=== PATIENT | female | born 1970 | race Hispanic/Latino ===

== ENCOUNTER 2022-01-19 16:08 | Emergency (ER) | payer OTHER, MEDICAID, SELFPAY ==
[2022-01-19 16:55] VITALS: BP 144/75; PULSE 105; RESP 16; TEMP 36.3; O2SAT 98; BMI 33.6
--- NOTE | 2022-01-19 16:59 | DI.RAD.S_ITS ---
PROCEDURE: XR LUMBAR SPINE 2-3V INDICATIONS: direct blow TECHNIQUE: 3 views of the lumbar spine were acquired. COMPARISON: None. FINDINGS: Bones: 5 [id number] vertebrae are present. There is trace dextroconvex curvature. No vertebral body compression fractures. No suspicious bony lesions. Mild disc space narrowing and degenerative endplate changes are seen that are most prominent at the L5-S1 level. There is minimal facet hypertrophy. Soft tissues: Overlying bowel gas pattern is normal. No suspicious soft tissue calcifications. IMPRESSION: No acute osseous abnormality. If the symptoms persist, consider cross sectional imaging such as MRI or CT for further assessment. Approved by: Jean Thakur M.D. on 01/19/2022 at 17:17
[2022-01-19] MEDS: KETOROLAC 30 MG/ML VIAL 15 MG IM (19:19)
[2022-01-19] MEDS: methocarbamoL 500 MG TABLET PO (19:19)
[2022-01-19] MEDS: predniSONE 20 MG TABLET 40 MG PO (19:19)
[2022-01-19] MEDS: PANTOPRAZOLE DR 20 MG TABLET PO (19:19)
[2022-01-19 19:22] VITALS: BP 139/90; PULSE 106; RESP 16; O2SAT 96
--- NOTE | 2022-01-19 19:23 | ED.BACK ---
HPI - Back Pain/Injury <CINDY Garcia - Last Filed: 01/19/22 20:14> General Chief Complaint: Back Pain/Injury Stated Complaint: Fell down stairs, Low back pain Time Seen by Provider: 01/19/22 18:56 History of Present Illness HPI Narrative: This is a 51-year-old female presents to the emergency department after a fall 6 days ago down the stairs landing on her buttocks. She states that she has had back spasms at nighttime, endorses low back pain which is exacerbated by bending over, leg lift, twisting or certain positions. She states that she just moved here, has not been able to set up a primary care provider yet because she just finished her Medicare/Medicaid paperwork and states that it needs 2 weeks of processing time before he can make an appointment. She states that she takes levothyroxine, estradiol and rosuvastatin daily and she is almost out of these medications. She states that she is been taking Tylenol for her pain but it has not been adequate and it is keeping her up at night. Related Data Previous Rx's Medication Instructions Recorded estradiol 1 mg tablet 1 mg PO DAILY #30 tabs 01/19/22 ketorolac 10 mg tablet 10 mg PO TID PRN pain 5 days #14 01/19/22 tabs levothyroxine 112 mcg capsule 112 mcg PO DAILY #30 caps 01/19/22 methocarbamol 500 mg tablet 500 mg PO TID PRN muscle #20 tabs 01/19/22 prednisone 20 mg tablet 40 mg PO DAILY 5 days #10 tabs 01/19/22 rosuvastatin 10 mg tablet 10 mg PO DAILY #30 tabs 01/19/22 Review of Systems <CINDY Garcia - Last Filed: 01/19/22 20:14> Review of Systems Narrative: Review of systems is negative for acute abnormalities unless otherwise noted in HPI Patient History <CINDY Garcia - Last Filed: 01/19/22 20:14> Social History Smoking Status: Never smoker Smoking Status: Never smoker Substance Use Type: does not use Exam <CINDY Garcia - Last Filed: 01/19/22 20:14> Narrative Exam Narrative: Reviewed vitals signs and nursing notes. General: cooperative, comfortable, in no acute distress, well groomed HEENT: symmetrical facial expressions, moist mucous membranes MSK: moves all extremities, neurovascularly intact, no weakness, normal tone, tenderness to her L5-S1 over her sacrum, pain is exacerbated by forward flexion and leg lift. She has a lidocaine patch present, no surrounding erythema, no tenderness to palpation rectal tone is present Skin: brisk capillary refill, without pallor or erythema Neuro: normal speech and cognition, A&O x3, ambulatory, clear speech Psych: mental status is grossly normal, congruent mood, normal affect, pleasant and cooperative Initial Vital Signs Initial Vital Signs: Vital Signs Temperature 97.3 F L 01/19/22 16:55 Pulse Rate 105 H 01/19/22 16:55 Respiratory Rate 16 01/19/22 16:55 Blood Pressure 144/75 H 01/19/22 16:55 Pulse Oximetry 98 01/19/22 16:55 Oxygen Delivery Method 01/19/22 16:55 <Xin Arango DO - Last Filed: 01/23/22 08:34> Initial Vital Signs Initial Vital Signs: Vital Signs Temperature 97.3 F L 01/19/22 16:55 Pulse Rate 105 H 01/19/22 16:55 Respiratory Rate 16 01/19/22 16:55 Blood Pressure 144/75 H 01/19/22 16:55 Pulse Oximetry 98 01/19/22 16:55 Oxygen Delivery Method 01/19/22 16:55 Course <CINDY Garcia - Last Filed: 01/19/22 20:14> Orders Ordered: Discontinued Medications Ketorolac Tromethamine (Ketorolac 30 Mg/Ml Vial) 15 mg IM NOW ONE Stop: 01/19/22 19:08 Last Admin: 01/19/22 19:19 Dose: 15 mg Documented By: AMRIK Methocarbamol (Methocarbamol 500 Mg Tablet) 500 mg PO NOW ONE Stop: 01/19/22 19:10 Last Admin: 01/19/22 19:19 Dose: 500 mg Documented By: AMRIK Pantoprazole Sodium (Pantoprazole Dr 20 Mg Tablet) 20 mg PO NOW ONE Stop: 01/19/22 19:08 Last Admin: 01/19/22 19:19 Dose: 20 mg Documented By: AMRIK Prednisone (Prednisone 20 Mg Tablet) 40 mg PO NOW ONE Stop: 01/19/22 19:08 Last Admin: 01/19/22 19:19 Dose: 40 mg Documented By: RL Vital Signs Vital signs: Vital Signs - 8 hr 01/19/22 16:55 01/19/22 19:22 Temperature 97.3 F L Pulse Rate 105 H 106 H Respiratory Rate 16 16 Blood Pressure 144/75 H 139/90 Pulse Oximetry 98 96 Oxygen Delivery Method Room Air Room Air <Xin Aranog DO - Last Filed: 01/23/22 08:34> Orders Ordered: Discontinued Medications Ketorolac Tromethamine (Ketorolac 30 Mg/Ml Vial) 15 mg IM NOW ONE Stop: 01/19/22 19:08 Last Admin: 01/19/22 19:19 Dose: 15 mg Documented By: RL Methocarbamol (Methocarbamol 500 Mg Tablet) 500 mg PO NOW ONE Stop: 01/19/22 19:10 Last Admin: 01/19/22 19:19 Dose: 500 mg Documented By: RL Pantoprazole Sodium (Pantoprazole Dr 20 Mg Tablet) 20 mg PO NOW ONE Stop: 01/19/22 19:08 Last Admin: 01/19/22 19:19 Dose: 20 mg Documented By: RL Prednisone (Prednisone 20 Mg Tablet) 40 mg PO NOW ONE Stop: 01/19/22 19:08 Last Admin: 01/19/22 19:19 Dose: 40 mg Documented By: AMRIK Vital Signs Vital signs: Vital Signs - 8 hr 01/19/22 16:55 01/19/22 19:22 Temperature 97.3 F L Pulse Rate 105 H 106 H Respiratory Rate 16 16 Blood Pressure 144/75 H 139/90 Pulse Oximetry 98 96 Oxygen Delivery Method Room Air Room Air MDM - Back Pain/Injury <CINDY Garcia - Last Filed: 01/19/22 20:14> Imaging Data Extremity x-ray #1: Radiologist's Impression: PROCEDURE:? XR LUMBAR SPINE 2-3V ? INDICATIONS:? direct blow ? TECHNIQUE:? 3 views of the lumbar spine were acquired.? ? COMPARISON:? None. ? FINDINGS:? ? Bones:? 5 [id number] vertebrae are present.? There is trace dextroconvex curvature.? No vertebral body compression fractures.? No suspicious bony lesions.? Mild disc space narrowing and degenerative endplate changes are seen that are most prominent at the L5-S1 level.? There is minimal facet hypertrophy.? ? Soft tissues:? Overlying bowel gas pattern is normal.? No suspicious soft tissue calcifications.? ? ? IMPRESSION:? No acute osseous abnormality. If the symptoms persist, consider cross sectional imaging such as MRI or CT for further assessment. ? ? ? Approved by: Jean Thakur M.D. on 01/19/2022 at 17:17? [facility] Narrative Medical decision making narrative: This is a 51-year-old female who presents to the emergency department after a slip down the stairs on her buttocks 6 days ago, she has ongoing low back pain states that it radiates over her hips bilaterally and she has been having spasms at nighttime. Patient states that she just got Medicare, is pending paperwork approval so she can follow-up with a primary care provider which she has tried to establish. She has to wait until this is approved before she can make an appointment. Today, she has lumbar radiculopathy from a fall 6 days ago, endorses spasms at nighttime in having pain despite taking Tylenol for this. Her x-rays negative for fracture or other acute abnormality, degenerative disc disease and mild disc space narrowing with degenerative endplate changes are most prominent L5-S1, this is where she is most painful. She is given Toradol in the emergency department, already had a lidocaine patch on, was prescribed methocarbamol, prednisone, and Toradol tabs and encouraged to take these medications in addition to her Tylenol for her low back pain exacerbation which is ongoing. She is almost out of her regular medications including levothyroxine, rosuvastatin, and estradiol. I refilled these medications for her today and encourage patient to return if she has any worsening low back pain, fever, chills, numbness or tingling in her groin, weakness, or other symptom. Patient presents with 6 days of back pain and is afebrile. Given history and exam, suspect likely musculoskeletal etiology, they are nontoxic appearing with no overt risk factors for epidural hematoma or abscess. No overt evidence of critical cord compression and has a nonfocal near exam. Neurovascularly intact distally, no evidence of infection, peritoneal signs, hypertensive crisis, or abdominal pain with low suspicion for AAA. No weakness, incontinence, neurovascular or sensation changes, no concerning findings for caudal equina syndrome, lumbar fracture, without paresthesia, neuropathic pain, meningeal signs and fever. This could be a herniated disk, paraspinal or other muscle strain, ligamental injury, arthritic, nephrolithiasis/pyelonephritis, epidural abscess, chronic pain, and other diagnosis? considered less likely. Patient is appropriate and amenable to discharge home. Vital signs are stable on repeat examination is unremarkable. Patient has been informed of results. Patient has been given strict return to ER precautions for any new or worsening symptoms. Patient understands to follow up closely with outpatient providers as instructed. Patient understands plan and agrees to discharge home. All questions and concerns answered at this time. Discharge Plan Departure Patient Disposition: Home Clinical Impression: Acute low back pain with bilateral sciatica Qualifiers: Back pain laterality: bilateral Qualified Code(s): M54.42 - Lumbago with sciatica, left side Instructions: DI for Back Spasm Activity Restrictions/Additional Instructions: *You have been diagnosed with low back pain from a fall 6 days ago with sciatica and ongoing pain. Please start taking Toradol every 8 hours as needed for pain with food and water, this will not affect your alertness. For spasms of the muscles of your back, please take methocarbamol, this is best to take at nighttime because it will make you tired. Please take 40 mg of prednisone starting tomorrow each morning with food and water for the next 5 days, this will hopefully help reduce inflammation of your low back injury. Please call and schedule an appointment at [facility] for follow-up if you have worsening or ongoing pain. This is most likely a herniated disc or other inflammation putting pressure on the nerve root. Please rest, try to avoid over stretching, over exerting yourself, or increased activity. Please try heat and cool compresses, either may be helpful for you. I wish you the best and follow-up with your Medicare and try and make an appointment for follow-up with primary care. Ask for a referral to physical therapy as well as outpatient imaging if needed. It is safe to take your medication for back pain with these other medications as needed. *What to do: *Please continue to take your regular medications as directed. [x ] New medication prescriptions sent to your pharmacy: [[facility] ] [ ] New medication written as a paper prescription [ ] No new medications given *Please follow up with your primary care provider in 2-3 days, call for an appointment. Let them know you were seen in the Emergency Department and that we asked that you be seen for follow-up. We will electronically transmit a record of today's note if your PCP is in our system *If you do not have a primary care provider please contact [phone] to establish care with one of the [facility] primary care providers. *Return to Emergency Department if you should have any new, worsening, or concerning symptoms, such as [fever greater than 101F, chills, worsening pain, persistent vomiting or other bothersome symptoms]. Prescriptions: New rosuvastatin 10 mg tablet 10 mg PO DAILY Qty: 30 3RF levothyroxine 112 mcg capsule 112 mcg PO DAILY Qty: 30 3RF ketorolac 10 mg tablet 10 mg PO TID PRN (Reason: pain) 5 Days Qty: 14 0RF methocarbamol 500 mg tablet 500 mg PO TID PRN (Reason: muscle) Qty: 20 0RF estradiol 1 mg tablet 1 mg PO DAILY Qty: 30 3RF Rx Instructions: off 1 week; repeat cycle prednisone 20 mg tablet 40 mg PO DAILY 5 Days Qty: 10 0RF Referrals: [facility] [Provider Group] Visit Report Forms: Patient Portal/API <Xin Arango DO - Last Filed: 01/23/22 08:34> Cosign ED Attending Bhupendra Attestation: I was immediately available in the department for consultation. Documentation has been reviewed.
== END 2022-01-19 19:25 | disposition home or self-care (01) ==
PROVIDERS: Emergency Provider Nurse Practitioner Critical Care Medicine
DX: M54.42 Lumbago with sciatica, left side (principal)
CPT/HCPCS: 72100; 96372; 99283; 99284; J1885

== ENCOUNTER → 2022-02-08 10:04 | Outpatient (CLI) | payer OTHER, MEDICAID, SELFPAY ==
[2022-02-08 11:49] LABS: Hemoglobin A1C% w Est Avg Glu 5.3 % (4.0-6.0)
[2022-02-08 11:55] LABS: Alanine Aminotransferase 27 IU/L (<35); Albumin 4.2 g/dL (3.5-5.0); Albumin Globulin Ratio 1.4 (1.0-2.8); Alkaline Phosphatase 79 U/L (38-126); Aspartate Aminotransferase 25 IU/L (14-36); BUN Creatinine Ratio 23.4 (6-22); Bilirubin Total 0.2 mg/dL (0.2-1.3); Blood Urea Nitrogen 15 mg/dL (7-17); Calcium 8.9 mg/dL (8.4-10.2); Carbon Dioxide 28 mmol/L (22-32); Chloride 102 mmol/L (98-107); Cholesterol 158 mg/dL (140-199); Estimated Glomerular Filt Rate > 60 mL/min (>60); Glucose 82 mg/dL (70-100); HDL Cholesterol 55 mg/dL (40-60); HEMOLYSIS < 15 (0-50); LDL Cholesterol Calculated 61 mg/dL (<100); Potassium 3.8 mmol/L (3.4-5.1); Sodium 140 mmol/L (137-145); Total Protein 7.2 g/dL (6.3-8.2); Triglycerides 212 mg/dL (35-150)
[2022-02-08 12:33] LABS: TSH w/ Reflex to FT4 2.96 uIU/mL (0.47-4.68)
== END ==
PROVIDERS: PCP Family Medicine; Referring Provider Family Medicine; Visit Provider Family Medicine
DX: E03.9 Hypothyroidism, unspecified (principal); E78.5 Hyperlipidemia, unspecified; R03.0 Elevated blood-pressure reading, without diagnosis of hypertension; Z79.890 Hormone replacement therapy
CPT/HCPCS: 36415; 80053; 80061; 83036; 84443

== ENCOUNTER → 2022-04-05 15:41 | Outpatient (CLI) | payer OTHER, MEDICAID, SELFPAY ==
--- NOTE | 2022-04-05 15:46 | DI.MG.S_ITS ---
BILATERAL DIGITAL SCREENING MAMMOGRAM 3D/2D WITH CAD: 04/05/2022 CLINICAL: Routine screening. Family history of breast cancer. Comparison is made to exam dated: 03/02/2021 mammogram - outside location. There are scattered areas of fibroglandular density in both breasts (category b / 25%-50% glandular tissue). Current study was also evaluated with a Computer Aided Detection (CAD) system. There is possible architectural distortion in the left breast at 1 o'clock anterior depth. This is more prominent. No other significant masses, calcifications, or other findings are seen in either breast. IMPRESSION: INCOMPLETE: NEEDS ADDITIONAL IMAGING EVALUATION The possible architectural distortion in the left breast is indeterminate. Additional views with possible ultrasound are recommended. Based on the Tyrer Cuzick model (a risk assessment model) the patient's lifetime risk is 8.6% and her 10 year risk is 2.4%. According to the ACR, ACS, and NCCN guidelines, an annual breast MRI exam along with mammogram is recommended if the patient's lifetime risk is 20% or greater. This exam was interpreted at Station ID: [id number]. NOTE: For mammograms, a report in lay terms will be sent to the patient. Approximately 15% of breast malignancies will not be visualized mammographically. In the management of a palpable breast mass, a negative mammogram must not discourage biopsy of a clinically suspicious lesion. Electronically Signed By: Jorge Meyer M.D. lc/:04/06/2022 08:06:06 letter sent: Additional Imaging Needed ACR BI-RADS Category 0: Incomplete [id number]
== END ==
PROVIDERS: Family Provider Family Medicine; PCP Family Medicine; Referring Provider Family Medicine; Visit Provider Family Medicine
DX: Z12.31 Encounter for screening mammogram for malignant neoplasm of breast (principal); Z80.3 Family history of malignant neoplasm of breast
CPT/HCPCS: 77063; 77067

== ENCOUNTER → 2022-04-25 11:39 | Outpatient (CLI) | payer OTHER, MEDICAID, SELFPAY ==
--- NOTE | 2022-04-25 11:40 | DI.US.S_ITS ---
ULTRASOUND OF LEFT BREAST: 04/25/2022 CLINICAL: Patient returns today to evaluate a focal asymmetry in the left breast. Comparison is made to exams dated: 04/25/2022 mammogram, 04/05/2022 mammogram - [facility], and 03/02/2021 mammogram - outside location. Color flow and real-time ultrasound of the left breast were performed. Hudson scale images of the real-time examination were reviewed. No significant abnormalities were seen sonographically in the left breast. IMPRESSION: NEGATIVE There is no sonographic evidence of malignancy. There is no abnormality seen in the left breast to correspond with the resolved mammography finding of possible architectural distortion which likely represents normal fibroglandular tissue. A 1 year screening mammogram is recommended. Findings and recommendations were conveyed to the patient during today's evaluation. This exam was interpreted at Station ID: [id number]. Electronically Signed By: Derrek Maloney M.D. aty/:04/25/2022 12:24:58 letter sent: Normal Exam Ultrasound BI-RADS: 1 Negative
--- NOTE | 2022-04-25 11:40 | DI.MG.S_ITS ---
UNILATERAL LEFT DIGITAL DIAGNOSTIC MAMMOGRAM 3D/2D WITH ADDITIONAL VIEWS: 04/25/2022 CLINICAL: Additional evaluation requested from prior study. Comparison is made to exams dated: 04/05/2022 mammogram - [facility] and 03/02/2021 mammogram - outside [facility]. There are scattered areas of fibroglandular density in the left breast (category b / 25%-50% glandular tissue). The previously described possible architectural distortion in the left breast at 1 o'clock anterior depth is not confirmed in additional views. This is less prominent and decreased in size. No other significant masses or calcifications are seen in the breast. IMPRESSION: INCOMPLETE: NEEDS ADDITIONAL IMAGING EVALUATION The possible architectural distortion in the left breast most likely is fibroglandular tissue but remains indeterminate. An ultrasound is recommended for further evaluation and is scheduled to immediately follow this examination. Based on the Tyrer Cuzick model (a risk assessment model) the patient's lifetime risk is 6.7% and her 10 year risk is 1.9%. According to the ACR, ACS, and NCCN guidelines, an annual breast MRI exam along with mammogram is recommended if the patient's lifetime risk is 20% or greater. This exam was interpreted at Station ID: [id number]. NOTE: For mammograms, a report in lay terms will be sent to the patient. Approximately 15% of breast malignancies will not be visualized mammographically. In the management of a palpable breast mass, a negative mammogram must not discourage biopsy of a clinically suspicious lesion. Electronically Signed By: Derrek Maloney M.D. aty/:04/25/2022 12:23:41 ACR BI-RADS Category 0: Incomplete [id number]
== END ==
PROVIDERS: Family Provider Family Medicine; PCP Family Medicine; Referring Provider Family Medicine; Visit Provider Family Medicine
DX: R92.8 Other abnormal and inconclusive findings on diagnostic imaging of breast (principal)
CPT/HCPCS: 76642; 77065; G0279

== ENCOUNTER 2022-05-24 07:30 | Outpatient (RCR) | payer OTHER, MEDICAID, SELFPAY ==
--- NOTE | 2022-04-24 12:44 | PT.OPPOC ---
Physical, Occupational & Speech Therapy At [facility] Current Diagnoses Pain in right shoulder (04/24/22) Low back pain, unspecified (04/24/22) Visit Care Team Role Provider Type Savanna Banuelos DO Attending Provider Physician Family Provider Primary Care Provider Referring Provider Specialty: Family Practice Address: [address] [place] [address], [address], [address] Phone: Fax: Email: [email or web address] Plan Of Care PT-OP-T Assessment and Plan Start: 04/18/22 10:12 Freq: Status: Active Protocol: Document 04/24/22 13:45 AMB (Rec: 04/25/22 08:14 AMB [id number]) Physical Therapy Assessment Rehab Potential Rehabilitation Potential Good Evaluation Complexity Number of Personal Factors/Comorbidities 1-2 Number of Body Systems Impaired 4 or More Clinical Presentation at Evaluation Evolving Impairments Impairments Pain,Posture,ROM,Soft Tissue Mobility,Strength Goals HEP Short Term Goal (STG) Renate will be independent and consistent with a HEP for her shoulder and back pain. STG Duration 4 weeks Three Impairment ROM Short Term Goal (STG) Renate will show improved shoulder R flexion to 170 degrees actively without an increase in shoulder pain. STG Duration 6 weeks Quahogger Goal (LTG) Renate will show improved spinal extension AROM to 15 degrees without an increase in pain. 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 STG Duration 6 weeks Quahogger Goal (LTG) Renate will lift 20 pounds from waist to chest height with good body mechanics without an increase in her shoulder pain . LTG Duration 12 weeks One Impairment Pain Short Term Goal (STG) Renate will sleep on her side (R or L) for 4 hours without waking due to pain. STG Duration 6 weeks Quahogger Goal (LTG) Renate will perform all upper body dressing without an increase in shoulder pain. LTG Duration 12 weeks Assessment Summary Assessment Renate attends physical therapy with R shoulder and back pain s/p fall. She is having symptoms that radiate into the left hip and leg. Xray of lumbar spine showed disc space narrowing and degeneration most prominent at L5S1, no other imaging. She shows increased lumbar lordosis with decreased tolerance for spinal extension. Weakness in left hip flexion and extension. Shoulder pain is most prominent at biceps insertion and scapular stabilizers with pain with external and internal rotation . Renate reports significant pain with sleeping, reporting 10/10 pain at times. She will benefit from therapeutic exercise to stabilize and stretch, manual therapy and modalities to manage her pain symptoms. Physical Therapy Plan Frequency and Duration Frequency of Treatment 2x/Week Duration of treatment (weeks) 12 Plan of Care Start Date 04/24/22 Plan of Care End Date 07/17/22 Therapeutic Interventions Therapeutic Interventions Home Exercise Program,Manual Therapy,Neuromuscular Re- education,Self-Care/Home Management,Therapeutic Activities,Therapeutic Exercises Modalities Cold Pack/Ice Massage,Electric Stimulation,Hot Packs, Iontophoresis Other Therapeutic Interventions iontophoresis with dexamethsone Next Visit Focus/Plan Next Note Type Treatment Note Next Visit Plan Assess how pt tolerated e-stim and kinesiotape. Begin HEP: can try shoulder isometrics, scapular stability, anterior stretching; lumbar stabilization training starting in neutral, hip stretching Plan of Care Dates Plan of Care Start Date 04/24/22 Plan of Care End Date 07/17/22 Electronically Signed by: Kathrin Kelley, PT 04/25/22 [id number] If you are in agreement with this Plan of Care, please return a signed and dated copy. I have reviewed this Plan of Care and certify that the skilled therapy services above are required to meet the patient?s needs. Physician Signature Date Printed Name and Credentials Clinical Instructor Signature Printed Name and Credentials
--- NOTE | 2022-04-24 16:00 | PT.OTN ---
Current Diagnoses Pain in right shoulder (04/24/22) Low back pain, unspecified (04/24/22) Physical Therapy Treatment Note PT-OP-A Visit Information Start: 04/18/22 10:12 Freq: Status: Active Protocol: Document 04/24/22 13:49 AMB (Rec: 04/24/22 14:00 AMB [id number]) Out-Patient Physical Therapy Visit Information Visit Information Visit Type Initial Evaluation Visit Start Time 13:45 Visit Stop Time 14:30 Total Visit Minutes 45 Visit Number 1 PT-OP-B Current Condition Start: 04/18/22 10:12 Freq: Status: Active Protocol: Document 04/24/22 13:49 AMB (Rec: 04/24/22 14:00 AMB [id number]) Current Condition History of Current Condition Onset Date 4 months Current Complaints R shoulder and back pain History of Current Condition R shoulder pain with sleeping. Reports she was almost falling and grabbed thing with her R shoulder and that's when the pain started. The back pain also started around that time. Notes increased low bakc pain with picking something up from the floor, pain with trying to sleep. L hip pain radiates down to the knee. Really sharp pain in the back, with burning down the left leg. Stiffness in the morning. Walking down the stairs and slipped on the stairs, but didn't fall all the way down. PT-OP-C Subjective Start: 04/18/22 10:12 Freq: Status: Active Protocol: Document 04/24/22 14:01 AMB (Rec: 04/24/22 14:03 AMB [id number]) OP-PT Subjective Patient Comments Patient Comments 10/10 pain in the shoulder brief. 9-10/10 pain in the back with trying to sleep. PT-OP-J Posture/Palpation/Skin Start: 04/18/22 10:12 Freq: Status: Active Protocol: Document 04/24/22 13:45 AMB (Rec: 04/24/22 16:20 AMB [id number]) Posture Evaluation Comments Posture Comments increased lumbar lordosis, mild forward shoulders Palpation Assessment Location One Palpation Details Tenderness at biceps proximal attachments and at scapular muscles, tenderness throughout L IT band. PT-OP-K Range of Motion Start: 04/18/22 10:12 Freq: Status: Active Protocol: Document 04/24/22 13:45 AMB (Rec: 04/24/22 16:20 AMB [id number]) Lumbar Spine Range of Motion Lumbar Spine Active Degrees Extension 0 Lateral Flexion Left 20 Lateral Flexion Right 15 Shoulder Goniometric Range of Motion Shoulder Right Active Flexion 145 Abduction 180 Internal Rotation Behind Back (text) L3 painful PT-OP-L Special Tests Start: 04/18/22 10:12 Freq: Status: Active Protocol: Document 04/24/22 13:45 AMB (Rec: 04/24/22 16:20 AMB [id number]) Special Tests Shoulder Special Tests Neer Impingement Test Results +R Rod Aime Impingement Test Results +R PT-OP-M Strength Start: 04/18/22 10:12 Freq: Status: Active Protocol: Document 04/24/22 13:45 AMB (Rec: 04/24/22 16:20 AMB [id number]) Hip Strength Hip Manual Muscle Testing Right Flexion (L2) 5 Normal Extension (S1) 5 Normal Left Flexion (L2) 4 Good Extension (S1) 4 Good PT-OP-Q Treatments Start: 04/18/22 10:12 Freq: Status: Active Protocol: Document 04/24/22 13:45 AMB (Rec: 04/24/22 16:20 AMB [id number]) Manual Therapy Treatment Taping 1 Body Location shoulder- right Type of Tape Kinesio Tape Comments 2 I strips: to promote scapular retraction and support biceps PT-OP-T Assessment and Plan Start: 04/18/22 10:12 Freq: Status: Active Protocol: Document 04/24/22 13:45 AMB (Rec: 04/25/22 08:14 AMB [id number]) Physical Therapy Assessment Rehab Potential Rehabilitation Potential Good Evaluation Complexity Number of Personal Factors/Comorbidities 1-2 Number of Body Systems Impaired 4 or More Clinical Presentation at Evaluation Evolving Impairments Impairments Pain,Posture,ROM,Soft Tissue Mobility,Strength Goals HEP Short Term Goal (STG) Renate will be independent and consistent with a HEP for her shoulder and back pain. STG Duration 4 weeks Three Impairment ROM Short Term Goal (STG) Renate will show improved shoulder R flexion to 170 degrees actively without an increase in shoulder pain. STG Duration 6 weeks Applier Goal (LTG) Renate will show improved spinal extension AROM to 15 degrees without an increase in pain. 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 STG Duration 6 weeks Applier Goal (LTG) Renate will lift 20 pounds from waist to chest height with good body mechanics without an increase in her shoulder pain . LTG Duration 12 weeks One Impairment Pain Short Term Goal (STG) Renate will sleep on her side (R or L) for 4 hours without waking due to pain. STG Duration 6 weeks Applier Goal (LTG) Renate will perform all upper body dressing without an increase in shoulder pain. LTG Duration 12 weeks Assessment Summary Assessment Renate attends physical therapy with R shoulder and back pain s/p fall. She is having symptoms that radiate into the left hip and leg. Xray of lumbar spine showed disc space narrowing and degeneration most prominent at L5S1, no other imaging. She shows increased lumbar lordosis with decreased tolerance for spinal extension. Weakness in left hip flexion and extension. Shoulder pain is most prominent at biceps insertion and scapular stabilizers with pain with external and internal rotation . Renate reports significant pain with sleeping, reporting 10/10 pain at times. She will benefit from therapeutic exercise to stabilize and stretch, manual therapy and modalities to manage her pain symptoms. Physical Therapy Plan Frequency and Duration Frequency of Treatment 2x/Week Duration of treatment (weeks) 12 Plan of Care Start Date 04/24/22 Plan of Care End Date 07/17/22 Therapeutic Interventions Therapeutic Interventions Home Exercise Program,Manual Therapy,Neuromuscular Re- education,Self-Care/Home Management,Therapeutic Activities,Therapeutic Exercises Modalities Cold Pack/Ice Massage,Electric Stimulation,Hot Packs, Iontophoresis Other Therapeutic Interventions iontophoresis with dexamethsone Next Visit Focus/Plan Next Note Type Treatment Note Next Visit Plan Assess how pt tolerated e-stim and kinesiotape. Begin HEP: can try shoulder isometrics, scapular stability, anterior stretching; lumbar stabilization training starting in neutral, hip stretching
--- NOTE | 2022-04-26 15:54 | PT.OTN ---
Current Diagnoses Pain in right shoulder (04/26/22) Low back pain, unspecified (04/26/22) Physical Therapy Treatment Note PT-OP-A Visit Information Start: 04/18/22 10:12 Freq: Status: Active Protocol: Document 04/26/22 09:04 AMB (Rec: 04/26/22 09:46 AMB [id number]) Out-Patient Physical Therapy Visit Information Visit Information Visit Type Treatment Note Visit Start Time 09:00 Visit Stop Time 09:45 Total Visit Minutes 45 Visit Number 2 PT-OP-B Current Condition Start: 04/18/22 10:12 Freq: Status: Active Protocol: Document 04/24/22 13:49 AMB (Rec: 04/24/22 14:00 AMB [id number]) Current Condition History of Current Condition Onset Date 4 months Current Complaints R shoulder and back pain History of Current Condition R shoulder pain with sleeping. Reports she was almost falling and grabbed thing with her R shoulder and that's when the pain started. The back pain also started around that time. Notes increased low bakc pain with picking something up from the floor, pain with trying to sleep. L hip pain radiates down to the knee. Really sharp pain in the back, with burning down the left leg. Stiffness in the morning. Walking down the stairs and slipped on the stairs, but didn't fall all the way down. PT-OP-C Subjective Start: 04/18/22 10:12 Freq: Status: Active Protocol: Document 04/26/22 09:04 AMB (Rec: 04/26/22 09:46 AMB [id number]) OP-PT Subjective Patient Comments Patient Comments Pt felt TENS was helpful. PT-OP-J Posture/Palpation/Skin Start: 04/18/22 10:12 Freq: Status: Active Protocol: Document 04/24/22 13:45 AMB (Rec: 04/24/22 16:20 AMB [id number]) Posture Evaluation Comments Posture Comments increased lumbar lordosis, mild forward shoulders Palpation Assessment Location One Palpation Details Tenderness at biceps proximal attachments and at scapular muscles, tenderness throughout L IT band. PT-OP-K Range of Motion Start: 04/18/22 10:12 Freq: Status: Active Protocol: Document 04/24/22 13:45 AMB (Rec: 04/24/22 16:20 AMB [id number]) Lumbar Spine Range of Motion Lumbar Spine Active Degrees Extension 0 Lateral Flexion Left 20 Lateral Flexion Right 15 Shoulder Goniometric Range of Motion Shoulder Right Active Flexion 145 Abduction 180 Internal Rotation Behind Back (text) L3 painful PT-OP-L Special Tests Start: 04/18/22 10:12 Freq: Status: Active Protocol: Document 04/24/22 13:45 AMB (Rec: 04/24/22 16:20 AMB [id number]) Special Tests Shoulder Special Tests Neer Impingement Test Results +R Rod Aime Impingement Test Results +R PT-OP-M Strength Start: 04/18/22 10:12 Freq: Status: Active Protocol: Document 04/24/22 13:45 AMB (Rec: 04/24/22 16:20 AMB [id number]) Hip Strength Hip Manual Muscle Testing Right Flexion (L2) 5 Normal Extension (S1) 5 Normal Left Flexion (L2) 4 Good Extension (S1) 4 Good PT-OP-Q Treatments Start: 04/18/22 10:12 Freq: Status: Active Protocol: Document 04/26/22 09:00 AMB (Rec: 04/26/22 15:54 AMB [id number]) Therapeutic Exercises Supine Exercises LTR Reps/Minutes 2x10 PPT Reps/Minutes 5x5 Sidelying Exercises ER Reps/Minutes 2x10 Comments AROM only Sitting Exercises pulleys Sitting Exercise Name flexion Reps/Minutes 20x2 Comments bent elbows Manual Therapy Treatment Soft Tissue Mobilization L LB/hip Body Location L hip Mobilization Type Myofascial Release Comments with gentle manual traction, IT band stretch (passive) PT-OP-T Assessment and Plan Start: 04/18/22 10:12 Freq: Status: Active Protocol: Document 04/26/22 09:00 AMB (Rec: 04/26/22 15:54 AMB [id number]) Physical Therapy Assessment Goals HEP Short Term Goal (STG) Renate will be independent and consistent with a HEP for her shoulder and back pain. STG Duration 4 weeks Three Impairment ROM Short Term Goal (STG) Renate will show improved shoulder R flexion to 170 degrees actively without an increase in shoulder pain. STG Duration 6 weeks Usp Goal (LTG) Renate will show improved spinal extension AROM to 15 degrees without an increase in pain. 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 STG Duration 6 weeks Merchandise Clerk Goal (LTG) Renate will lift 20 pounds from waist to chest height with good body mechanics without an increase in her shoulder pain . LTG Duration 12 weeks One Impairment Pain Short Term Goal (STG) Renate will sleep on her side (R or L) for 4 hours without waking due to pain. STG Duration 6 weeks Merchandise Clerk Goal (LTG) Renate will perform all upper body dressing without an increase in shoulder pain. LTG Duration 12 weeks Assessment Summary Assessment Renate did well with e-stim and is interested in purchasing a TENS unit. Did not feel significant change with kinesiotape. Tolerated pulleys well, did have some pain with sidelying shoulder abduction. Continues to have tension in L LE from lumbar spine. Physical Therapy Plan Frequency and Duration Frequency of Treatment 2x/Week Duration of treatment (weeks) 12 Plan of Care Start Date 04/24/22 Plan of Care End Date 07/17/22 Therapeutic Interventions Therapeutic Interventions Home Exercise Program,Manual Therapy,Neuromuscular Re- education,Self-Care/Home Management,Therapeutic Activities,Therapeutic Exercises Modalities Cold Pack/Ice Massage,Electric Stimulation,Hot Packs, Iontophoresis Other Therapeutic Interventions iontophoresis with dexamethsone Next Visit Focus/Plan Next Note Type Treatment Note Next Visit Plan Assess how pt tolerated e-stim and kinesiotape. Begin HEP: can try shoulder isometrics, scapular stability, anterior stretching; lumbar stabilization training starting in neutral, hip stretching
--- NOTE | 2022-05-03 22:16 | PT.OTN ---
Addendum entered and electronically signed by Kathrin Kelley, PT 05/05/22 07:37: Pt was seen from 9:00-9:55 for 55 minutes, to allow time for IFC at end of treatment Original Note: Current Diagnoses Pain in right shoulder (05/03/22) Low back pain, unspecified (05/03/22) Physical Therapy Treatment Note PT-OP-A Visit Information Start: 04/18/22 10:12 Freq: Status: Active Protocol: Document 05/03/22 09:03 AMB (Rec: 05/03/22 09:35 AMB [id number]) Out-Patient Physical Therapy Visit Information Visit Information Visit Type Treatment Note Visit Start Time 09:00 Visit Stop Time 09:45 Total Visit Minutes 45 Visit Number 3 PT-OP-B Current Condition Start: 04/18/22 10:12 Freq: Status: Active Protocol: Document 04/24/22 13:49 AMB (Rec: 04/24/22 14:00 AMB [id number]) Current Condition History of Current Condition Onset Date 4 months Current Complaints R shoulder and back pain History of Current Condition R shoulder pain with sleeping. Reports she was almost falling and grabbed thing with her R shoulder and that's when the pain started. The back pain also started around that time. Notes increased low bakc pain with picking something up from the floor, pain with trying to sleep. L hip pain radiates down to the knee. Really sharp pain in the back, with burning down the left leg. Stiffness in the morning. Walking down the stairs and slipped on the stairs, but didn't fall all the way down. PT-OP-C Subjective Start: 04/18/22 10:12 Freq: Status: Active Protocol: Document 05/03/22 09:03 AMB (Rec: 05/03/22 09:35 AMB [id number]) OP-PT Subjective Patient Comments Patient Comments Pt reports tried to find a TENS unit at [facility] but couldn't find one, still looking. PT-OP-J Posture/Palpation/Skin Start: 04/18/22 10:12 Freq: Status: Active Protocol: Document 04/24/22 13:45 AMB (Rec: 04/24/22 16:20 AMB [id number]) Posture Evaluation Comments Posture Comments increased lumbar lordosis, mild forward shoulders Palpation Assessment Location One Palpation Details Tenderness at biceps proximal attachments and at scapular muscles, tenderness throughout L IT band. PT-OP-K Range of Motion Start: 04/18/22 10:12 Freq: Status: Active Protocol: Document 04/24/22 13:45 AMB (Rec: 04/24/22 16:20 AMB [id number]) Lumbar Spine Range of Motion Lumbar Spine Active Degrees Extension 0 Lateral Flexion Left 20 Lateral Flexion Right 15 Shoulder Goniometric Range of Motion Shoulder Right Active Flexion 145 Abduction 180 Internal Rotation Behind Back (text) L3 painful PT-OP-L Special Tests Start: 04/18/22 10:12 Freq: Status: Active Protocol: Document 04/24/22 13:45 AMB (Rec: 04/24/22 16:20 AMB [id number]) Special Tests Shoulder Special Tests Neer Impingement Test Results +R Rod Aime Impingement Test Results +R PT-OP-M Strength Start: 04/18/22 10:12 Freq: Status: Active Protocol: Document 04/24/22 13:45 AMB (Rec: 04/24/22 16:20 AMB [id number]) Hip Strength Hip Manual Muscle Testing Right Flexion (L2) 5 Normal Extension (S1) 5 Normal Left Flexion (L2) 4 Good Extension (S1) 4 Good PT-OP-Q Treatments Start: 04/18/22 10:12 Freq: Status: Active Protocol: Document 05/03/22 22:00 AMB (Rec: 05/03/22 22:16 AMB [id number]) Therapeutic Exercises Supine Exercises piriformis stretch Supine Exercise Name 30x2 Side left hamstring stretch Supine Exercise Name 30x2 Side left hooklying hip ER Reps/Minutes 2x10 Comments #3 t band LTR Reps/Minutes 2x10 PPT Reps/Minutes 5x5 Sidelying Exercises ER Sidelying Exercise Name hip Reps/Minutes 2x10 Comments AROM only Manual Therapy Treatment Soft Tissue Mobilization L LB/hip Body Location L hip Mobilization Type Myofascial Release Comments with gentle manual traction, IT band stretch (passive) Taping 1 Body Location shoulder- right Type of Tape Kinesio Tape Comments 2 I strips: to promote scapular retraction and support biceps PT-OP-R Modalities Start: 04/18/22 10:12 Freq: Status: Active Protocol: Document 05/03/22 22:00 AMB (Rec: 05/03/22 22:16 AMB [id number]) Electric Stimulation Electric Stimulation Interferential Current (IFC) Body Location L low back Duration (Minutes) 15 Patient Position Hooklying Combined With Heat/Cold Hot Pack PT-OP-T Assessment and Plan Start: 04/18/22 10:12 Freq: Status: Active Protocol: Document 05/03/22 22:00 AMB (Rec: 05/03/22 22:16 AMB [id number]) Physical Therapy Assessment Goals HEP Short Term Goal (STG) Renate will be independent and consistent with a HEP for her shoulder and back pain. STG Duration 4 weeks Three Impairment ROM Short Term Goal (STG) Renate will show improved shoulder R flexion to 170 degrees actively without an increase in shoulder pain. STG Duration 6 weeks Hosiery Mater Goal (LTG) Renate will show improved spinal extension AROM to 15 degrees without an increase in pain. 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 STG Duration 6 weeks Hosiery Mater Goal (LTG) Renate will lift 20 pounds from waist to chest height with good body mechanics without an increase in her shoulder pain . LTG Duration 12 weeks One Impairment Pain Short Term Goal (STG) Renate will sleep on her side (R or L) for 4 hours without waking due to pain. STG Duration 6 weeks Hosiery Mater Goal (LTG) Renate will perform all upper body dressing without an increase in shoulder pain. LTG Duration 12 weeks Assessment Summary Assessment Renate's shoulder is improving, but continues to have L low back pain that radiates into the left leg. Doing her HEP. Progressed hip ER strengthening today which was challenging. Physical Therapy Plan Frequency and Duration Frequency of Treatment 2x/Week Duration of treatment (weeks) 12 Plan of Care Start Date 04/24/22 Plan of Care End Date 07/17/22 Therapeutic Interventions Therapeutic Interventions Home Exercise Program,Manual Therapy,Neuromuscular Re- education,Self-Care/Home Management,Therapeutic Activities,Therapeutic Exercises Modalities Cold Pack/Ice Massage,Electric Stimulation,Hot Packs, Iontophoresis Other Therapeutic Interventions iontophoresis with dexamethsone Next Visit Focus/Plan Next Note Type Treatment Note Next Visit Plan Assess how pt tolerated e-stim and kinesiotape. Begin HEP: can try shoulder isometrics, scapular stability, anterior stretching; lumbar stabilization training starting in neutral, hip stretching-- follow up on scheduling
--- NOTE | 2022-05-10 12:31 | PT.OTN ---
Current Diagnoses Pain in right shoulder (05/10/22) Low back pain, unspecified (05/10/22) Physical Therapy Treatment Note PT-OP-A Visit Information Start: 04/18/22 10:12 Freq: Status: Active Protocol: Document 05/10/22 09:08 AMB (Rec: 05/10/22 09:40 AMB [id number]) Out-Patient Physical Therapy Visit Information Visit Information Visit Type Treatment Note Visit Start Time 09:00 Visit Stop Time 09:45 Total Visit Minutes 45 Visit Number 4 PT-OP-B Current Condition Start: 04/18/22 10:12 Freq: Status: Active Protocol: Document 04/24/22 13:49 AMB (Rec: 04/24/22 14:00 AMB [id number]) Current Condition History of Current Condition Onset Date 4 months Current Complaints R shoulder and back pain History of Current Condition R shoulder pain with sleeping. Reports she was almost falling and grabbed thing with her R shoulder and that's when the pain started. The back pain also started around that time. Notes increased low bakc pain with picking something up from the floor, pain with trying to sleep. L hip pain radiates down to the knee. Really sharp pain in the back, with burning down the left leg. Stiffness in the morning. Walking down the stairs and slipped on the stairs, but didn't fall all the way down. PT-OP-C Subjective Start: 04/18/22 10:12 Freq: Status: Active Protocol: Document 05/10/22 09:08 AMB (Rec: 05/10/22 09:40 AMB [id number]) OP-PT Subjective Patient Comments Patient Comments Some days hip pain is really bad, shoulder pain seems to be gone. Seems to think that on days she does her HEP at home the next day the pain increases. PT-OP-J Posture/Palpation/Skin Start: 04/18/22 10:12 Freq: Status: Active Protocol: Document 04/24/22 13:45 AMB (Rec: 04/24/22 16:20 AMB [id number]) Posture Evaluation Comments Posture Comments increased lumbar lordosis, mild forward shoulders Palpation Assessment Location One Palpation Details Tenderness at biceps proximal attachments and at scapular muscles, tenderness throughout L IT band. PT-OP-K Range of Motion Start: 04/18/22 10:12 Freq: Status: Active Protocol: Document 04/24/22 13:45 AMB (Rec: 04/24/22 16:20 AMB [id number]) Lumbar Spine Range of Motion Lumbar Spine Active Degrees Extension 0 Lateral Flexion Left 20 Lateral Flexion Right 15 Shoulder Goniometric Range of Motion Shoulder Right Active Flexion 145 Abduction 180 Internal Rotation Behind Back (text) L3 painful PT-OP-L Special Tests Start: 04/18/22 10:12 Freq: Status: Active Protocol: Document 04/24/22 13:45 AMB (Rec: 04/24/22 16:20 AMB [id number]) Special Tests Shoulder Special Tests Neer Impingement Test Results +R Rod Aime Impingement Test Results +R PT-OP-M Strength Start: 04/18/22 10:12 Freq: Status: Active Protocol: Document 04/24/22 13:45 AMB (Rec: 04/24/22 16:20 AMB [id number]) Hip Strength Hip Manual Muscle Testing Right Flexion (L2) 5 Normal Extension (S1) 5 Normal Left Flexion (L2) 4 Good Extension (S1) 4 Good PT-OP-Q Treatments Start: 04/18/22 10:12 Freq: Status: Active Protocol: Document 05/10/22 09:00 AMB (Rec: 05/10/22 12:19 AMB [id number]) Therapeutic Exercises Supine Exercises piriformis stretch Supine Exercise Name 30x2 Side left hamstring stretch Supine Exercise Name 30x2 Side left LTR Supine Exercise Name paused for now Manual Therapy Treatment Soft Tissue Mobilization L LB/hip Body Location L hip Mobilization Type Myofascial Release Comments with gentle manual traction, IT band stretch (passive) PT-OP-R Modalities Start: 04/18/22 10:12 Freq: Status: Active Protocol: Document 05/10/22 09:00 AMB (Rec: 05/10/22 12:19 AMB [id number]) Hot Pack/Cold Pack Treatment Hot Pack Location L hip Patient Position Sidelying Treatment Duration (minutes) 10 Patient Tolerance Good PT-OP-T Assessment and Plan Start: 04/18/22 10:12 Freq: Status: Active Protocol: Document 05/10/22 09:08 AMB (Rec: 05/10/22 09:40 AMB [id number]) Physical Therapy Assessment Goals HEP Short Term Goal (STG) Renate will be independent and consistent with a HEP for her shoulder and back pain. STG Duration 4 weeks Three Impairment ROM Short Term Goal (STG) Renate will show improved shoulder R flexion to 170 degrees actively without an increase in shoulder pain. STG Duration 6 weeks Skilled Nursing Goal (LTG) Renate will show improved spinal extension AROM to 15 degrees without an increase in pain. 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 STG Duration 6 weeks Skilled Nursing Goal (LTG) Renate will lift 20 pounds from waist to chest height with good body mechanics without an increase in her shoulder pain . LTG Duration 12 weeks One Impairment Pain Short Term Goal (STG) Renate will sleep on her side (R or L) for 4 hours without waking due to pain. STG Duration 6 weeks Learning Program Manager Goal (LTG) Renate will perform all upper body dressing without an increase in shoulder pain. LTG Duration 12 weeks Assessment Summary Assessment Renate is having some good days and some day when it comes to her hip/back. Very tender in IT band/ piriformis. Physical Therapy Plan Frequency and Duration Frequency of Treatment 2x/Week Duration of treatment (weeks) 12 Plan of Care Start Date 04/24/22 Plan of Care End Date 07/17/22 Therapeutic Interventions Therapeutic Interventions Home Exercise Program,Manual Therapy,Neuromuscular Re- education,Self-Care/Home Management,Therapeutic Activities,Therapeutic Exercises Modalities Cold Pack/Ice Massage,Electric Stimulation,Hot Packs, Iontophoresis Other Therapeutic Interventions iontophoresis with dexamethsone Next Visit Focus/Plan Next Note Type Treatment Note Next Visit Plan Progress lumbar stabilization training starting in neutral, hip stretching--
--- NOTE | 2022-05-24 08:15 | PT.OTN ---
Current Diagnoses Pain in right shoulder (05/24/22) Low back pain, unspecified (05/24/22) Physical Therapy Treatment Note PT-OP-A Visit Information Start: 04/18/22 10:12 Freq: Status: Active Protocol: Document 05/24/22 07:35 SP (Rec: 05/24/22 08:19 SP [id number]) Out-Patient Physical Therapy Visit Information Visit Information Visit Type Treatment Note Visit Start Time 07:35 Visit Stop Time 08:15 Total Visit Minutes 40 Visit Number 5 Number of SEAFOOD CLERK Visits 1 PT-OP-B Current Condition Start: 04/18/22 10:12 Freq: Status: Active Protocol: Document 04/24/22 13:49 AMB (Rec: 04/24/22 14:00 AMB [id number]) Current Condition History of Current Condition Onset Date 4 months Current Complaints R shoulder and back pain History of Current Condition R shoulder pain with sleeping. Reports she was almost falling and grabbed thing with her R shoulder and that's when the pain started. The back pain also started around that time. Notes increased low bakc pain with picking something up from the floor, pain with trying to sleep. L hip pain radiates down to the knee. Really sharp pain in the back, with burning down the left leg. Stiffness in the morning. Walking down the stairs and slipped on the stairs, but didn't fall all the way down. PT-OP-C Subjective Start: 04/18/22 10:12 Freq: Status: Active Protocol: Document 05/24/22 07:35 SP (Rec: 05/24/22 08:19 SP [id number]) OP-PT Subjective Patient Comments Patient Comments Pt reports back pain wakes her up at night. She is not sure if the stretching is helping or irritating her, doesn't seem to help when performs. PT-OP-J Posture/Palpation/Skin Start: 04/18/22 10:12 Freq: Status: Active Protocol: Document 04/24/22 13:45 AMB (Rec: 04/24/22 16:20 AMB [id number]) Posture Evaluation Comments Posture Comments increased lumbar lordosis, mild forward shoulders Palpation Assessment Location One Palpation Details Tenderness at biceps proximal attachments and at scapular muscles, tenderness throughout L IT band. PT-OP-K Range of Motion Start: 04/18/22 10:12 Freq: Status: Active Protocol: Document 04/24/22 13:45 AMB (Rec: 04/24/22 16:20 AMB [id number]) Lumbar Spine Range of Motion Lumbar Spine Active Degrees Extension 0 Lateral Flexion Left 20 Lateral Flexion Right 15 Shoulder Goniometric Range of Motion Shoulder Right Active Flexion 145 Abduction 180 Internal Rotation Behind Back (text) L3 painful PT-OP-L Special Tests Start: 04/18/22 10:12 Freq: Status: Active Protocol: Document 04/24/22 13:45 AMB (Rec: 04/24/22 16:20 AMB [id number]) Special Tests Shoulder Special Tests Neer Impingement Test Results +R Rod Aime Impingement Test Results +R PT-OP-M Strength Start: 04/18/22 10:12 Freq: Status: Active Protocol: Document 04/24/22 13:45 AMB (Rec: 04/24/22 16:20 AMB [id number]) Hip Strength Hip Manual Muscle Testing Right Flexion (L2) 5 Normal Extension (S1) 5 Normal Left Flexion (L2) 4 Good Extension (S1) 4 Good PT-OP-Q Treatments Start: 04/18/22 10:12 Freq: Status: Active Protocol: Document 05/24/22 07:35 SP (Rec: 05/24/22 08:19 SP [id number]) Therapeutic Exercises Supine Exercises honey stretch Supine Exercise Name added to HEP Side left Reps/Minutes 30 x2 Comments cued neutral LS/TA fac to allow no LB arch- good feedback ant hip stretch piriformis stretch Supine Exercise Name HEP reviewed Side left Reps/Minutes 30x2 Comments cued gentle knee toward R shld - good feedback stretch hamstring stretch Side left Equipment Used use strap on ft Reps/Minutes 30x2 Comments good feedback stretch, ed not allow ft neutral position hooklying hip ER Supine Exercise Name HEP reviewed Resistance #3 t band Reps/Minutes 2x10 Comments cued PPT awareness, good painfree PPT Reps/Minutes 5x5 Standing Exercises calf stretch Standing Exercise Name shown for stretch assist when walking Side left Other Exercises self STMs Other Exercise Name added: ES, Glut med, calf Side left Equipment Used ball wall, rolling pin Reps/Minutes 3 min total Comments good feedback stated used bottle on calf- Self-Care/Home Management Treatment Education Patient Education Body Mechanics,Pain Management ,Posture Other Education Ed use pillows between knees, BUEs and behind back for spinal alignment with good feedback. PT-OP-R Modalities Start: 04/18/22 10:12 Freq: Status: Active Protocol: Document 05/10/22 09:00 AMB (Rec: 05/10/22 12:19 AMB [id number]) Hot Pack/Cold Pack Treatment Hot Pack Location L hip Patient Position Sidelying Treatment Duration (minutes) 10 Patient Tolerance Good PT-OP-T Assessment and Plan Start: 04/18/22 10:12 Freq: Status: Active Protocol: Document 05/24/22 07:35 SP (Rec: 05/24/22 08:19 SP [id number]) Physical Therapy Assessment Goals HEP Short Term Goal (STG) Renate will be independent and consistent with a HEP for her shoulder and back pain. STG Duration 4 weeks Three Impairment ROM Short Term Goal (STG) Renate will show improved shoulder R flexion to 170 degrees actively without an increase in shoulder pain. STG Duration 6 weeks Receptionist Scheduler Goal (LTG) Renate will show improved spinal extension AROM to 15 degrees without an increase in pain. 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 STG Duration 6 weeks Assisted Goal (LTG) Renate will lift 20 pounds from waist to chest height with good body mechanics without an increase in her shoulder pain . LTG Duration 12 weeks One Impairment Pain Short Term Goal (STG) Renate will sleep on her side (R or L) for 4 hours without waking due to pain. STG Duration 6 weeks Receptionist Scheduler Goal (LTG) Renate will perform all upper body dressing without an increase in shoulder pain. LTG Duration 12 weeks Assessment Summary Assessment Pt good response to ed use pillows for spinal and extremity support. CUed use of strap for HS stretch and slow eccentric supine clamshell allowed improved TA stabilization. Intiated use ball rolling self massage to glut med and rolling pin for reduced tightness. Next tx progress strengthening and functional mobility Physical Therapy Plan Frequency and Duration Frequency of Treatment 2x/Week Duration of treatment (weeks) 12 Plan of Care Start Date 04/24/22 Plan of Care End Date 07/17/22 Therapeutic Interventions Therapeutic Interventions Home Exercise Program,Manual Therapy,Neuromuscular Re- education,Self-Care/Home Management,Therapeutic Activities,Therapeutic Exercises Modalities Cold Pack/Ice Massage,Electric Stimulation,Hot Packs, Iontophoresis Other Therapeutic Interventions iontophoresis with dexamethsone Next Visit Focus/Plan Next Note Type Treatment Note Next Visit Plan Response to use pillows sleeping, self massage w/ ball . Added core march/ SLR and standing TB rows/ext, side stepping. POC: Progress lumbar stabilization training starting in neutral, hip stretching--
--- NOTE | 2022-05-31 08:29 | PT-OP ANOTE ---
Pt did not show for today's appt, left a message regarding, reminded of no show policy and offered openings in my scheduled for tomorrow 0730 and afternoon.
--- NOTE | 2022-10-11 15:44 | PT.OPDS ---
Current Diagnoses Pain in right shoulder (05/24/22) Low back pain, unspecified (05/24/22) Visit Care Team Role Provider Type Savanna Banuelos DO Attending Provider Physician Family Provider Primary Care Provider Referring Provider Specialty: Family Practice Address: [address] [place] [address], [address], [address] Email: [email or web address] Visit Number Visit Number 5 Discharge Summary PT-OP-B Current Condition Start: 04/18/22 10:12 Freq: Status: Active Protocol: Document 04/24/22 13:49 AMB (Rec: 04/24/22 14:00 AMB [id number]) Current Condition History of Current Condition Onset Date 4 months Current Complaints R shoulder and back pain History of Current Condition R shoulder pain with sleeping. Reports she was almost falling and grabbed thing with her R shoulder and that's when the pain started. The back pain also started around that time. Notes increased low bakc pain with picking something up from the floor, pain with trying to sleep. L hip pain radiates down to the knee. Really sharp pain in the back, with burning down the left leg. Stiffness in the morning. Walking down the stairs and slipped on the stairs, but didn't fall all the way down. PT-OP-C Subjective Start: 04/18/22 10:12 Freq: Status: Active Protocol: Document 05/24/22 07:35 SP (Rec: 05/24/22 08:19 SP [id number]) OP-PT Subjective Patient Comments Patient Comments Pt reports back pain wakes her up at night. She is not sure if the stretching is helping or irritating her, doesn't seem to help when performs. PT-OP-J Posture/Palpation/Skin Start: 04/18/22 10:12 Freq: Status: Active Protocol: Document 04/24/22 13:45 AMB (Rec: 04/24/22 16:20 AMB [id number]) Posture Evaluation Comments Posture Comments increased lumbar lordosis, mild forward shoulders Palpation Assessment Location One Palpation Details Tenderness at biceps proximal attachments and at scapular muscles, tenderness throughout L IT band. PT-OP-K Range of Motion Start: 04/18/22 10:12 Freq: Status: Active Protocol: Document 04/24/22 13:45 AMB (Rec: 04/24/22 16:20 AMB [id number]) Lumbar Spine Range of Motion Lumbar Spine Active Degrees Extension 0 Lateral Flexion Left 20 Lateral Flexion Right 15 Shoulder Goniometric Range of Motion Shoulder Right Active Flexion 145 Abduction 180 Internal Rotation Behind Back (text) L3 painful PT-OP-L Special Tests Start: 04/18/22 10:12 Freq: Status: Active Protocol: Document 04/24/22 13:45 AMB (Rec: 04/24/22 16:20 AMB [id number]) Special Tests Shoulder Special Tests Neer Impingement Test Results +R Rod Aime Impingement Test Results +R PT-OP-M Strength Start: 04/18/22 10:12 Freq: Status: Active Protocol: Document 04/24/22 13:45 AMB (Rec: 04/24/22 16:20 AMB [id number]) Hip Strength Hip Manual Muscle Testing Right Flexion (L2) 5 Normal Extension (S1) 5 Normal Left Flexion (L2) 4 Good Extension (S1) 4 Good PT-OP-T Assessment and Plan Start: 04/18/22 10:12 Freq: Status: Active Protocol: Document 10/11/22 15:35 AMB (Rec: 10/11/22 15:44 AMB [id number]) Physical Therapy Assessment Goals HEP Short Term Goal (STG) Renate will be independent and consistent with a HEP for her shoulder and back pain. STG Duration 4 weeks Three Impairment ROM Short Term Goal (STG) Renate will show improved shoulder R flexion to 170 degrees actively without an increase in shoulder pain. STG Duration 6 weeks [employer] Goal (LTG) Renate will show improved spinal extension AROM to 15 degrees without an increase in pain. 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 STG Duration 6 weeks Care Home Goal (LTG) Renate will lift 20 pounds from waist to chest height with good body mechanics without an increase in her shoulder pain . LTG Duration 12 weeks One Impairment Pain Short Term Goal (STG) Renate will sleep on her side (R or L) for 4 hours without waking due to pain. STG Duration 6 weeks [employer] Goal (LTG) Renate will perform all upper body dressing without an increase in shoulder pain. LTG Duration 12 weeks Assessment Summary Assessment Pt no showed and canceled her last few appointments, she was continuing to have pain when she was last seen in PT. Physical Therapy Plan Discharge Physical Therapy Discharge Reasons No Longer Attending PT
== END 2022-10-12 14:05 | disposition home or self-care (01) ==
LOC: PHYS 07:30
PROVIDERS: Family Provider Family Medicine; PCP Family Medicine; Referring Provider Family Medicine; Visit Provider Family Medicine
DX: M54.50 Low back pain, unspecified (principal); M25.511 Pain in right shoulder
CPT/HCPCS: 97014; 97032; 97110; 97140; 97162; 97535; G0283

== ENCOUNTER 2022-10-04 15:46 | Emergency (ER) | payer OTHER, MEDICAID, SELFPAY ==
[2022-10-04 15:49] VITALS: BP 135/71; PULSE 79; RESP 15; TEMP 37.1; O2SAT 99; BMI 34.9
[2022-10-04 16:20] LABS: Add Manual Diff / Slide Review NO; Basophils Absolute Auto 100 /uL (0-100); Basophils Percent Auto 0.8 % (0-2); Eosinophils Absolute Auto 200 /uL (0-450); Eosinophils Percent Auto 2.5 % (2-4); Hemoglobin 13.9 g/dL (12.0-16.0); Lymphocytes Absolute Auto 2500 /uL (1100-4500); Lymphocytes Percent Auto 31.2 % (25-40); Mean Corpuscular Hemoglobin 29.4 PG (26-34); Mean Corpuscular Volume 86.6 fL (80-100); Monocytes Absolute Auto 600 /uL (0-900); Monocytes Percent Auto 7.9 % (3-14); Neutrophils Absolute Auto 4500 /uL (1500-7000); Neutrophils Percent Auto 57.6 % (50-75); Platelet Count 249 X10^3/uL (150-400); Red Blood Cell Count 4.74 X10^6/uL (4.0-5.2); White Blood Cell Count 7.9 X10^3/uL (4.5-11.0)
[2022-10-04] MEDS: ONDANSETRON 4 MG/2 ML INJ IV (16:22)
[2022-10-04 16:32] LABS: Alanine Aminotransferase 22 IU/L (<35); Albumin 4.2 g/dL (3.5-5.0); Albumin Globulin Ratio 1.4 (1.0-2.8); Alkaline Phosphatase 94 U/L (38-126); Aspartate Aminotransferase 26 IU/L (14-36); Bilirubin Total 0.4 mg/dL (0.2-1.3); Blood Urea Nitrogen 18 mg/dL (7-17); Carbon Dioxide 25 mmol/L (22-32); Chloride 103 mmol/L (98-107); Estimated Glomerular Filt Rate > 60 mL/min (>60); Globulin 3.1 g/dL (1.7-4.1); Glucose 98 mg/dL (70-100); HEMOLYSIS 27 (0-50); Lipase 90 U/L (23-300); Potassium 4.3 mmol/L (3.4-5.1); Sodium 136 mmol/L (137-145); Total Protein 7.3 g/dL (6.3-8.2)
--- NOTE | 2022-10-04 19:14 | ED_ITS ---
HPI - Abdominal Pain General Chief Complaint: Urogenital-Female Stated Complaint: possible lt kidney stone, sent by [facility] Time Seen by Provider: 10/04/22 16:16 Source: patient Mode of arrival: Ambulatory History of Present Illness HPI narrative: Patient is a 52-year-old female history of hypothyroid, hyperlipidemia hypertension presenting today with 2 days of left scapular pain. It has been constant pain for 2 days. She is taking pain medicine which she helps bring it down a little bit but then she still has burning sensation. She denies numbness tingling or weakness in her left arm she denies any chest pain or shortness of breath. She reports it kind of radiates down into her left upper quadrant. She feels nauseous at times with some vomiting no fever or chills. No other symptoms. Seen in the walk-in clinic thought to have nephrolithiasis and sent here for further evaluation. She denies any painful or frequent urination no significant abdominal pain. It hurts every time she moves her left arm. It is also reproducible with palpation. Related Data Previous Rx's Medication Instructions Recorded estradiol 1 mg tablet 1 mg PO DAILY #30 tabs 02/08/22 levothyroxine 112 mcg capsule 112 mcg PO DAILY #30 caps 02/08/22 methocarbamol 500 mg tablet 500 mg PO TID PRN muscle #20 tabs 02/08/22 naproxen 500 mg tablet 500 mg PO BID PRN pain #60 tabs 02/08/22 rosuvastatin 10 mg tablet 10 mg PO DAILY #30 tabs 02/08/22 lisinopril 20 mg tablet 20 mg PO DAILY #90 tabs 03/08/22 hydrocodone 5 mg-acetaminophen 325 1 tab PO Q6H PRN pain #10 tabs 10/04/22 mg tablet Allergies Allergy/AdvReac Type Severity Reaction Status Date / Time No Known Drug Allergies Allergy Verified 10/04/22 15:49 Review of Systems Review of Systems ROS Unobtainable: All systems reviewed & are unremarkable except as noted in HPI and below Patient History Medical History Benign essential HTN Carpal tunnel syndrome Foot pain Fractures Hormone replacement therapy Hyperlipidemia Hypothyroid Low back pain Shoulder pain Thyroid nodule Vitiligo Family History Father Stroke Mother Diabetes mellitus Hypertension Hyperlipidemia Social History Smoking Status: Never smoker Smoking Status: Never smoker alcohol intake frequency: holidays/special occasions only Substance Use Type: does not use Exam Initial Vital Signs Initial Vital Signs: Vital Signs Temperature 98.8 F 10/04/22 15:49 Pulse Rate 79 10/04/22 15:49 Respiratory Rate 15 10/04/22 15:49 Blood Pressure 135/71 10/04/22 15:49 Pulse Oximetry 99 10/04/22 15:49 Oxygen Delivery Method Room Air 10/04/22 15:49 GENERAL: Alert pleasant 52-year-old female and in no acute distress. HEENT: Head atraumatic,EOMI, pupils reactive, face symmetric, moist mucous membranes CARDIOVASCULAR: Regular rate and rhythm without murmurs, rubs or gallops. RESPIRATORY: Breath sounds equal bilaterally, no wheezes rales or rhonchi. BACK: Pain left scapular region reproducible to palpation. ABDOMEN: Soft, nontender. Normoactive bowel sounds all 4 quadrants. No guarding or rebound. EXTREMITIES: Normal range of motion, no clubbing or edema. Neurovascularly intact NEUROLOGICAL: Alert and oriented x4. SKIN: Warm, dry, no laceration, no petechiae, no rashes or lesions. Scores HEART Score Heart Score history: Slightly Suspicious Heart Score EKG: Normal Heart Score Age: 45-64 years old Heart Score risk factors: 1-2 risk factors Heart Score troponin: < or = to normal limit Heart Score Total: 2 Course Orders Ordered: ED Orders 10/04/22 19:31 EKG-12 Lead Routine Discontinued Medications Ketorolac Tromethamine (Ketorolac 30 Mg/Ml Vial) 15 mg IV NOW ONE Stop: 10/04/22 19:22 Last Admin: 10/04/22 20:00 Dose: 15 mg Documented By: REHANA Ondansetron HCl (Ondansetron 4 Mg/2 Ml Inj) 4 mg IV NOW PRN PRN Reason: Nausea And Vomiting Last Admin: 10/04/22 16:22 Dose: 4 mg Documented By: ERIKA Vital Signs Vital signs: Vital Signs - 8 hr 10/04/22 20:31 Pulse Rate 95 H Blood Pressure 133/88 Pulse Oximetry 97 Oxygen Delivery Method Room Air MDM - Abdominal Pain Lab Data 10/04/22 16:10 10/04/22 16:10 Labs: Lab Results 10/04/22 10/04/22 10/04/22 Range/Units 16:00 16:10 16:10 WBC 7.9 (4.5-11.0) X10^3/uL RBC 4.74 (4.0-5.2) X10^6/uL Hgb 13.9 (12.0-16.0) g/dL Hct 41.0 (36-46) % MCV 86.6 (80-100) fL MCH 29.4 (26-34) PG MCHC 34.0 (30-36) % RDW 13.0 (11.6-14.8) % Plt Count 249 (150-400) X10^3/uL Neut % (Auto) 57.6 (50-75) % Lymph % (Auto) 31.2 (25-40) % [place] % (Auto) 7.9 (3-14) % Eos % (Auto) 2.5 (2-4) % Baso % (Auto) 0.8 (0-2) % Neut # (Auto) 4500 (4409-3719) /uL Lymph # (Auto) 2500 (8533-9386) /uL [place] # (Auto) 600 (0-900) /uL Eos # (Auto) 200 (0-450) /uL Baso # (Auto) 100 (0-100) /uL Sodium 136 L (137-145) mmol/L Potassium 4.3 (3.4-5.1) mmol/L Chloride 103 (98-107) mmol/L Carbon Dioxide 25 (22-32) mmol/L BUN 18 H (7-17) mg/dL Creatinine 0.72 (0.52-1.04) mg/dL Estimated GFR > 60 (>60) mL/min BUN/Creatinine Ratio 25.0 H (6-22) Glucose 98 (70-100) mg/dL Calcium 9.0 (8.4-10.2) mg/dL Total Bilirubin 0.4 (0.2-1.3) mg/dL AST 26 (14-36) IU/L ALT 22 (<35) IU/L Alkaline Phosphatase 94 (38-126) U/L Total Creatine Kinase 71 (30-135) U/L Troponin I < 0.012 (0.01-0.034) ng/mL Total Protein 7.3 (6.3-8.2) g/dL Albumin 4.2 (3.5-5.0) g/dL Globulin 3.1 (1.7-4.1) g/dL Albumin/Globulin Ratio 1.4 (1.0-2.8) Lipase 90 (23-300) U/L Point of care testing: Urine Dip Bedside Urine Glucose Negative Bedside Urine Bilirubin - Negative Bedside Urine Ketone - Negative Urine Specific [place] 1.020 Bedside Urine Occult Blood - Negative Bedside Urine pH 5.5 Bedside Urine Protein - Negative Bedside Urine Urobilinogen - Negative Bedside Urine Nitrite - Negative Bedside Urine Leukocytes - Negative Esterase ECG Data Interpretation: EKG 1. Sinus rhythm rate 95 ME interval 178 QRS 86 QTC 447 noted in lead [address] elevations or depressions no priors to compare EKG 2. Sinus rhythm no changes from prior MDM Narrative Medical decision making narrative: Patient 52-year-old female who has left back pain and scapular pain that is reproducible with palpation ongoing for 2 days. She certainly does have cardiac factors hypertension hyperlipidemia however she is no changes on her EKG to suggest STEMI. Symptoms are not consistent with acute coronary syndrome. I suspect this is musculoskeletal in nature. I can definitely reproduce it. She does feel nauseous at times. Walk-in clinic record reviewed along with PCP records going back pain but it seems to be in a different spot. She is prescribed methocarbamol along with naproxen which was recently refilled. She is no hematuria no CVA tenderness symptoms are not consistent with nephrolithiasis. No need for imaging. Discharge Plan Departure Patient Disposition: Home Clinical Impression: Spasm of thoracic back muscle Instructions: Thoracic Back Pain Activity Restrictions/Additional Instructions: *You have been diagnosed with thoracic muscle spasm *What to do: Recommend heating pad, increase activity as tolerated. I think this is muscle related *Continue to take medications as directed [place] 1 tablet every 6 hours only if needed for severe pain--> Sent to [facility] *Follow up with your primary care provider in 2-3 days or call [phone] *Return to ER if you should have increasing pain numbness tingling weakness or any new, worsening or concerning symptoms CONTROLLED SUBSTANCE DISCHARGE (Narcotoic/benzodiazepine/Flexeril/Phenergan) 1. You have been prescribed narcotic medications, it does have acetaminophen/Tylenol/paracetamol in it, DO NOT TAKE MORE THAN 4,00mg in 24 hours of Tylenol. TRAMADOL DOES NOT CONTAIN TYLENOL 2. Please understand that we cannot provide further refills of narcotics, benzodiazepines or controlled substances through the ED and her pain management will need to be through your provider. 3. While on these medications you cannot drive or operate heavy machinery. 4. You cannot sign legal documents or perform any duties such as this. 5. As long as you're taking opiate pain medications he should also be taking a stool softener such as Colace, Dulcolax, MiraLAX or prune juice, to help avoid constipation. Prescriptions: New hydrocodone-acetaminophen 5-325 mg tablet 1 tab PO Q6H PRN (Reason: pain) Qty: 10 0RF No Action estradiol 1 mg tablet 1 mg PO DAILY Qty: 30 11RF Rx Instructions: off 1 week; repeat cycle levothyroxine 112 mcg capsule 112 mcg PO DAILY Qty: 30 11RF rosuvastatin 10 mg tablet 10 mg PO DAILY Qty: 30 11RF methocarbamol 500 mg tablet 500 mg PO TID PRN (Reason: muscle) Qty: 20 0RF naproxen 500 mg tablet 500 mg PO BID PRN (Reason: pain) Qty: 60 11RF Rx Instructions: with food lisinopril 20 mg tablet 20 mg PO DAILY Qty: 90 3RF Referrals: Savanna Banuelos DO [Primary Care Provider] - Stand Alone Forms: Patient Portal/API
[2022-10-04 19:44] LABS: Creatine Kinase 71 U/L (30-135)
[2022-10-04 19:57] LABS: Troponin I < 0.012 ng/mL (0.01-0.034)
[2022-10-04] MEDS: KETOROLAC 30 MG/ML VIAL 15 MG IV (20:00)
[2022-10-04 20:31] VITALS: BP 133/88; PULSE 95; O2SAT 97
== END 2022-10-04 20:32 | disposition home or self-care (01) ==
PROVIDERS: Emergency Medicine; Emergency Provider Emergency Medicine; Family Provider Family Medicine; PCP Family Medicine
DX: M62.830 Muscle spasm of back (principal); R10.12 Left upper quadrant pain; R11.2 Nausea with vomiting, unspecified
CPT/HCPCS: 36415; 80053; 81003; 82550; 83690; 84484; 85025; 93005; 96374; 96375; 99284; J1885; J2405

== ENCOUNTER → 2023-07-10 15:43 | Outpatient (CLI) | payer OTHER, SELFPAY ==
--- NOTE | 2023-07-10 15:44 | DI.MG.S_ITS ---
BILATERAL DIGITAL SCREENING MAMMOGRAM 3D/2D WITH CAD: 07/10/2023 CLINICAL: Routine screening. Family history of breast cancer. Comparison is made to exams dated: 04/05/2022 mammogram - [facility] and 03/02/2021 mammogram - outside [facility]. There are scattered areas of fibroglandular density in both breasts (category b / 25%-50% glandular tissue). Current study was also evaluated with a Computer Aided Detection (CAD) system. No significant masses, calcifications, or other findings are seen in either breast. There has been no significant interval change. IMPRESSION: NEGATIVE There is no mammographic evidence of malignancy. A 1 year screening mammogram is recommended. Based on the Tyrer Cuzick model (a risk assessment model) the patient's lifetime risk is 6.7% and her 10 year risk is 2.0%. According to the ACR, ACS, and NCCN guidelines, an annual breast MRI exam along with mammogram is recommended if the patient's lifetime risk is 20% or greater. This exam was interpreted at Station ID: [id number]. NOTE: For mammograms, a report in lay terms will be sent to the patient. Approximately 15% of breast malignancies will not be visualized mammographically. In the management of a palpable breast mass, a negative mammogram must not discourage biopsy of a clinically suspicious lesion. Electronically Signed By: Sparkle [email or web address]:07/11/2023 11:16:38 letter sent: Normal Exam ACR BI-RADS Category 1: Negative [id number]
== END ==
PROVIDERS: Family Provider Family Medicine; PCP Family Medicine; Referring Provider Family Medicine; Visit Provider Family Medicine
DX: Z12.31 Encounter for screening mammogram for malignant neoplasm of breast (principal); Z80.3 Family history of malignant neoplasm of breast; R92.323 Mammographic fibroglandular density, bilateral breasts
CPT/HCPCS: 77063; 77067

== ENCOUNTER → 2023-12-11 08:43 | Outpatient (CLI) | payer OTHER, BC, SELFPAY ==
[2023-12-11 10:57] LABS: Alanine Aminotransferase 43 IU/L (<35); Albumin 3.6 g/dL (3.5-5.0); Albumin Globulin Ratio 1.3 (1.0-2.8); Alkaline Phosphatase 103 U/L (38-126); Aspartate Aminotransferase 27 IU/L (14-36); BUN Creatinine Ratio 20.3 (6-22); Bilirubin Total 0.2 mg/dL (0.2-1.3); Blood Urea Nitrogen 12 mg/dL (7-17); Calcium 8.8 mg/dL (8.4-10.2); Carbon Dioxide 26 mmol/L (22-32); Chloride 104 mmol/L (98-107); Cholesterol 137 mg/dL (140-199); Estimated Glomerular Filt Rate > 60 mL/min (>60); Globulin 2.8 g/dL (1.7-4.1); Glucose 83 mg/dL (70-100); HDL Cholesterol 59 mg/dL (40-60); HEMOLYSIS < 15 (0-50); LDL Cholesterol Calculated 46 mg/dL (<100); Potassium 4.4 mmol/L (3.4-5.1); Sodium 135 mmol/L (137-145); Total Protein 6.4 g/dL (6.3-8.2); Triglycerides 158 mg/dL (35-150)
[2023-12-11 11:46] LABS: HIV 1 & 2 Ab/Ag 4th Gen Combo NEGATIVE (NEGATIVE); Hep C Virus Ab w/Reflex Quant NEGATIVE s/c (NEGATIVE)
[2023-12-11 12:03] LABS: Free T4, Direct Thyroxine 1.02 ng/dL (0.78-2.19)
== END ==
LOC: LAB 08:44
PROVIDERS: Family Provider Family Medicine; PCP Family Medicine; Referring Provider Family Medicine; Visit Provider Family Medicine
DX: E66.9 Obesity, unspecified (principal); I10 Essential (primary) hypertension; E78.5 Hyperlipidemia, unspecified; E03.9 Hypothyroidism, unspecified; Z11.4 Encounter for screening for human immunodeficiency virus [HIV]; Z11.59 Encounter for screening for other viral diseases; Z12.11 Encounter for screening for malignant neoplasm of colon
CPT/HCPCS: 36415; 80053; 80061; 84439; 84443; 86803; 87389

== ENCOUNTER → 2024-04-16 12:30 | Outpatient (CLI) | payer OTHER, SELFPAY ==
[2024-04-16 14:32] LABS: TSH w/ Reflex to FT4 < 0.02 uIU/mL (0.47-4.68)
[2024-04-16 20:42] LABS: Free T4, Direct Thyroxine 1.97 ng/dL (0.78-2.19)
== END ==
LOC: LAB 12:33
PROVIDERS: Family Provider Family Medicine; PCP Family Medicine; Referring Provider Family Medicine; Visit Provider Family Medicine
DX: E03.9 Hypothyroidism, unspecified (principal)
CPT/HCPCS: 36415; 84439; 84443